=== PATIENT | female | born 1965 | race Caucasian/White ===

== ENCOUNTER 2018-04-14 10:40 | Inpatient (IN) | payer OTHER ==
[2018-04-14] MEDS: Sodium Chloride 0.9% 1,000 ML IV SCH ×2 (12:15→23:50)
--- NOTE | 2018-04-14 12:19 | ED PDOC ---
Arrival/HPI - General Historian: Patient - History of Present Illness Narrative History of Present Illness (Text): 04/14/18 52 yo female w/PMHx of hypothyroidism, May Thurner syndrome, [place] from cruise ship for evaluation of headache, neck pain, ?LOC developed since yesterday. As per pt, " was on water slide yesterday 1:30 PM, remember going down slide and then in water with guards all around me, getting me out of water". Pt reports, developed severe posterior headache, radiating down to posterior neck area. As per , " she might passed out, did not see her hitting the head". Pt reports, was seen by MD on cruise, was told her BP was high. Pt was given Tylenol last night for headache and was seen by MD on cruise again, diagnosed with HTN, received Clonidine 0.1 mg and Xanax 0.5 mg. At present time, pt reports mild occipital headache , mild posterior neck pain. Otherwise, pt denies recent illness, fever, ch ills, severe headache, visual changes, focal deficits, CP, SOB, dyspnea, diaphoresis, palpitation, abd. pain, V/D, back pain, UTI. At present time, appears comfortable, not in any apparent distress. <Rosa Albrecht - Last Filed: 04/14/18 15:47> <Amor Matute - Last Filed: 04/14/18 17:11> - General Chief Complaint: Trauma Time Seen by Provider: 04/14/18 11:59 Past Medical History - Provider Review Nursing Documentation Reviewed: Yes - Travel History Have you recently traveled outside [place] w/in the past 3 mons?: No - Tetanus Immunization Tetanus Immunization: Unknown - Neurological Hx Migraine: Yes - Endocrine/Metabolic Hx Hypothyroidism: Yes - Psychiatric Hx Anxiety: Yes Hx Substance Use: No - Anesthesia Hx Anesthesia: No Hx Anesthesia Reactions: No Hx Malignant Hyperthermia: No <Rosa Albrecht - Last Filed: 04/14/18 15:47> Family/Social History - Physician Review Nursing Documentation Reviewed: Yes Family/Social History: No Known Family HX Smoking Status: Never Smoked Hx Alcohol Use: No Hx Substance Use: No <Rosa Albrecht - Last Filed: 04/14/18 15:47> Allergies/Home Meds <Rosa Albrecht - Last Filed: 04/14/18 15:47> <Jasonjesus manuelAmor salvador - Last Filed: 04/14/18 17:11> Allergies/Adverse Reactions: Allergies No Known Allergies Allergy (Verified 04/14/18 11:13) Home Medications: Home Meds Medication Instructions Recorded Confirmed Levothyroxine [Synthroid] 1 tab PO DAILY 04/14/18 04/14/18 Review of Systems - Review of Systems Constitutional: Normal Eyes: Normal. absent: Vision Changes ENT: Normal Respiratory: Normal. absent: SOB, Cough, Sputum Cardiovascular: Normal Gastrointestinal: Normal. absent: Abdominal Pain Genitourinary Female: Normal Musculoskeletal: Neck Pain Skin: Normal. absent: Rash Neurological: Headache. absent: Dizziness, Focal Weakness Endocrine: Normal Hemo/Lymphatic: Normal Psychiatric: Normal <Rosa Albrecht - Last Filed: 04/14/18 15:47> Physical Exam Vital Signs Reviewed: Yes Vital Signs Temp Pulse Resp BP Pulse Ox 04/14/18 10:41 98.5 F 86 18 158/91 H 100 Temperature: Afebrile Blood Pressure: Hypertensive Pulse: Regular Respiratory Rate: Normal Appearance: Positive for: Well-Appearing, Non-Toxic, Comfortable Pain Distress: None Mental Status: Positive for: Alert and Oriented X 3 - Systems Exam Head: Present: Atraumatic, Normocephalic Pupils: Present: PERRL Extroacular Muscles: Present: EOMI Conjunctiva: Present: Normal Ears: Present: NORMAL TM, Normal Canal Mouth: Present: Moist Mucous Membranes, Normal Lips. No: Drooling Nose (External): Present: Atraumatic Neck: Present: Normal Range of Motion, Paraspinal Tenderness (mild diffuse, no skin changes.), Trachea Midline. No: MIDLINE TENDERNESS, JVD, Bruit Respiratory/Chest: Present: Clear to Auscultation, Good Air Exchange. No: Respiratory Distress, Accessory Muscle Use Cardiovascular: Present: Regular Rate and Rhythm, Normal S1, S2. No: Murmurs Abdomen: No: Tenderness, Distention, Peritoneal Signs, Rebound, Guarding Back: No: CVA Tenderness Upper Extremity: Present: Normal ROM, NORMAL PULSES, Neurovascularly Intact. No: Cyanosis, Edema, Deformity Lower Extremity: Present: NORMAL PULSES, Normal ROM, Neurovascularly Intact. No: Edema, CALF TENDERNESS, Swelling, Deformity Neurological: Present: GCS=15, Speech Normal, Motor Func Grossly Intact, Normal Sensory Function, Normal Cerebellar Funct, Norm Deep Tendon Reflexes, Gait Normal Skin: Present: Warm, Dry, Normal Color. No: Rashes Psychiatric: Present: Alert, Oriented x 3, Normal Insight, Normal Concentration <Rosa Albrecht - Last Filed: 04/14/18 15:47> Vital Signs Temp Pulse Resp BP Pulse Ox 04/14/18 17:04 87 168/111 H 04/14/18 17:01 89 18 168/111 H 100 04/14/18 12:24 84 18 154/92 H 100 04/14/18 10:41 98.5 F 86 18 158/91 H 100 <Amor Matute - Last Filed: 04/14/18 17:11> Medical Decision Making ED Course and Treatment: 04/14/18 Pt remained stable during the Ed evaluation. case discussed, pt evaluated by ED attending and admission recommend Case discussed with and admission arranged to tele with Dx: HTN urg ency, syncope r/o TIA. - RAD Interpretation Narrative RAD Interpretations (Text): 04/14/18 15:13 CT HEAD W/O CONTRAST IMPRESSION: A minimal related neuro degenerative changes are identified without acute intracranial findings as discussed above. Follow up CT or MRI are available if clinically warranted. C-SPINE: IMPRESSION: 1. Straightened cervical curvature without fracture or spondylolisthesis identified. 2. Mild degenerative bilateral C5-6 neural foraminal stenosis. No significant central canal stenosis. No gross disc herniation. MRI can be utilized for greater characterization of the intervertebral disc as clinically warranted. ANGIO NECK: IMPRESSION: No significant common or internal carotid artery stenosis in the neck bilaterally. No evidence of arterial dissection at this time including bilateral vertebral arteries. Radiology Orders: 04/14/18 11:59 ANGIOGRAPHY NECK [CT] Stat CERVICAL SPINE W/O CONTRAST [CT] Stat HEAD W/O CONTRAST [CT] Stat 04/14/18 12:01 CTA HEAD/NECK CODE STROKE [CT] Stat CHEST TWO VIEWS (PA/LAT) [RAD] Stat - EKG Interpretation EKG Interpretation (Text): 04/14/18 12:25 SR@82/min, NAD, no acute T wave or ST-T changes. - Medication Orders Current Medication Orders: Sodium Chloride (Sodium Chloride 0.9%) 1,000 mls @ 100 mls/hr IV .Q10H QUAN <Rosa Albrecht - Last Filed: 04/14/18 15:47> - Lab Interpretations Lab Results: 04/14/18 12:25 04/14/18 12:25 Lab Results 04/14/18 12:25: Hemoglobin A1c 5.5 04/14/18 12:25: Sodium 141, Potassium 4.1, Chloride 108 H, Carbon Dioxide 28, Anion Gap 9 L, BUN 10, Creatinine 0.6 L, Est GFR ( Amer) > 60, Est GFR (Non-Af Amer) > 60, Random Glucose 100, Calcium 9.0, Total Bilirubin 0.6, AST 23, ALT 27, Alkaline Phosphatase 71, Troponin I < 0.01, NT-Pro-B Natriuret Pep 244, Total Protein 6.9, Albumin 4.0, Globulin 2.9, Albumin/Globulin Ratio 1.4, Triglycerides 140, Cholesterol 238 H, LDL Cholesterol Direct 148 H, HDL Cholesterol 71 H 04/14/18 12:25: PT 10.5, INR 0.92, APTT 24.7 L 04/14/18 12:25: WBC 4.8, RBC 4.29, Hgb 12.6, Hct 39.2, MCV 91.4, MCH 29.4, MCHC 32.1, RDW 12.5, Plt Count 261, MPV 8.9, Gran % 66.1, Lymph % (Auto) 27.0, Elbert % (Auto) 4.8, Eos % (Auto) 1.7, Baso % (Auto) 0.4, Gran # 3.19, Lymph # (Auto) 1.3, Elbert # (Auto) 0.2, Eos # (Auto) 0.1, Baso # (Auto) 0.02 - RAD Interpretation Radiology Orders: 04/14/18 11:59 ANGIOGRAPHY NECK [CT] Stat CERVICAL SPINE W/O CONTRAST [CT] Stat HEAD W/O CONTRAST [CT] Stat 04/14/18 12:01 CHEST TWO VIEWS (PA/LAT) [RAD] Stat - Medication Orders Current Medication Orders: Sodium Chloride (Sodium Chloride 0.9%) 1,000 mls @ 100 mls/hr IV .Q10H [facility] Last Admin: 04/14/18 12:15 Dose: 100 mls/hr eMAR Start Stop Document 04/14/18 12:15 EQ (Rec: 04/14/18 12:15 EQ [id number]) Intravenous Solution Start Date 04/14/18 Start Time 12:15 Discontinued Medications Metoprolol Tartrate (Lopressor) 25 mg PO STAT STA Stop: 04/14/18 15:46 Last Admin: 04/14/18 17:04 Dose: 25 mg MAR Pulse and Blood Pressure Document 04/14/18 17:04 EQ (Rec: 04/14/18 17:05 EQ [id number]) Pulse Pulse Rate (60-90) 87 Blood Pressure Blood Pressure (100/60-150/90) 168/111 <Amor Matute - Last Filed: 04/14/18 17:11> - PA / PURCHASER / Resident Statement / has reviewed & agrees with the documentation as recorded. / has examined the patient and agrees with the treatment plan. <Amor Matute - Last Filed: 04/14/18 17:11> Disposition/Present on Arrival - Present on Arrival Any Indicators Present on Arrival: No History of DVT/PE: No History of Uncontrolled Diabetes: No Urinary Catheter: No History of Decub. Ulcer: No History Surgical Site Infection Following: None - Disposition Have Diagnosis and Disposition been Completed?: Yes Disposition Time: 15:31 Patient Plan: Admission <Rosa Albrecht - Last Filed: 04/14/18 15:47> <Amor Matute - Last Filed: 04/14/18 17:11> - Disposition Diagnosis: Syncope, Hypertensive urgency Disposition: HOSPITALIZED Patient Problems: Current Active Problems Problem Status Onset Syncope Acute Hypertensive urgency Acute Condition: STABLE
[2018-04-14 12:51] LABS: BASO # 0.02 K/mm3 (0.0-2.0); BASO % 0.4 % (0.0-3.0); EOS # 0.1 (0.0-0.7); EOS % 1.7 % (1.5-5.0); GRAN # 3.19 (1.4-6.5); GRAN % 66.1 % (50.0-68.0); HEMOGLOBIN 12.6 g/dL (12.0-16.0); LYMPH # 1.3 (1.2-3.4); MEAN CELL VOLUME 91.4 fl (80.0-105.0); MEAN CORPUSCULAR HEMOGLOBIN 29.4 pg (25.0-35.0); MEAN CORPUSCULAR HGB CONC 32.1 g/dl (31.0-37.0); MEAN PLATELET VOLUME 8.9 fl (7.0-11.0); MONO # 0.2 (0.1-0.6); MONO % 4.8 % (1.0-6.0); RBC 4.29 10^6/uL (3.5-6.1); RED CELL DISTRIBUTION WIDTH 12.5 % (11.5-14.5); WHITE BLOOD COUNT 4.8 10^3/ul (4.5-11.0)
[2018-04-14 13:00] LABS: INR 0.92; PARTIAL THROMBOPLASTIN TIME 24.7 Seconds (25.1-36.5); PROTHROMBIN TIME 10.5 SECONDS (9.4-12.5)
[2018-04-14] MEDS ORDERED: Iohexol 350 MG/100 ML VIAL ONE (13:01)
[2018-04-14 13:06] LABS: ALB/GLOB RATIO 1.4 (1.1-1.8); ALT/SGPT 27 U/L (7-56); AST/SGOT 23 U/L (14-36); BLOOD UREA NITROGEN 10 mg/dL (7-21); GFR NON-AFRICAN AMERICAN > 60; HDL CHOLESTEROL 71 mg/dL (29-60)
[2018-04-14 13:17] LABS: LDL CHOLESTEROL 148 mg/dL (0-129)
[2018-04-14 13:20] LABS: B-TYPE NATRIURETIC PEPTIDE 244 pg/mL (0-450); TROPONIN I < 0.01 ng/mL
--- NOTE | 2018-04-14 14:26 | CT ---
Date of service: 04/14/2018 PROCEDURE: CT HEAD WITHOUT CONTRAST. HISTORY: LOC, headache, HTN COMPARISON: None available. TECHNIQUE: Axial computed tomography images were obtained through the head/brain without intravenous contrast. Radiation dose: Total exam DLP = 938.75 mGy-cm. This CT exam was performed using one or more of the following dose reduction techniques: Automated exposure control, adjustment of the mA and/or kV according to patient size, and/or use of iterative reconstruction technique. FINDINGS: HEMORRHAGE: No intracranial hemorrhage. BRAIN: Borderline expansion of the ventricular sulcal sternal spaces may indicate limited atrophy diffusely. No mass-effect is appreciated and corticomedullary differentiation is within normal limits. There also borderline periventricular lucency which may indicate early chronic microangiopathy. A dilated perivascular space is favored over chronic lacune left basal ganglia. VENTRICLES: Unremarkable. No hydrocephalus. CALVARIUM: Unremarkable. PARANASAL SINUSES: Unremarkable as visualized. No significant inflammatory changes. MASTOID AIR CELLS: Unremarkable as visualized. No inflammatory changes. OTHER FINDINGS: None. IMPRESSION: A minimal related neuro degenerative changes are identified without acute intracranial findings as discussed above. Follow up CT or MRI are available if clinically warranted.
--- NOTE | 2018-04-14 14:31 | CT ---
Date of service: 04/14/2018 PROCEDURE: CT Cervical Spine without contrast HISTORY: pain COMPARISON: None available. TECHNIQUE: Axial computed tomography images were obtained of the cervical spine without the use of intravenous contrast. Coronal and sagittal reformatted images were created and reviewed. Radiation dose: Total exam DLP = 440.32 mGy-cm. This CT exam was performed using one or more of the following dose reduction techniques: Automated exposure control, adjustment of the mA and/or kV according to patient size, and/or use of iterative reconstruction technique. FINDINGS: VERTEBRAE: Straightening of the cervical lordosis. No fracture or spondylolisthesis identified. Degenerative changes seen the C1-2 articulation with the craniocervical junction intact. The odontoid process appears intact. Prominent osteophytes are seen related to the anterior greater than posterior C5-6 endplates with minimal spondylosis otherwise evident at C4-5. [id number] multilevel facet joint degenerative arthropathy. DISCS/SPINAL CANAL/NEURAL FORAMINA: No significant bony central canal stenosis identified throughout. Mild bilateral C6 neural foraminal stenoses are appreciated on degenerative basis due to limited uncovertebral and facet joint degenerative change. PREVERTEBRAL AND PARASPINAL SOFT TISSUES: Unremarkable. OTHER FINDINGS: None. IMPRESSION: 1. Straightened cervical curvature without fracture or spondylolisthesis identified. 2. Mild degenerative bilateral C5-6 neural foraminal stenosis. No significant central canal stenosis. No gross disc herniation. MRI can be utilized for greater characterization of the intervertebral disc as clinically warranted.
--- NOTE | 2018-04-14 14:42 | RAD ---
Date of service: 04/14/2018 HISTORY: headache, HTN COMPARISON: No prior. TECHNIQUE: Chest PA and lateral FINDINGS: LUNGS: No active pulmonary disease. PLEURA: No significant pleural effusion identified. No pneumothorax apparent. CARDIOVASCULAR: Normal. OSSEOUS STRUCTURES: Degenerative changes. VISUALIZED UPPER ABDOMEN: Normal. OTHER FINDINGS: None. IMPRESSION: No active disease.
--- NOTE | 2018-04-14 15:00 | CT ---
Date of service: 04/14/2018 PROCEDURE: CT Angiography of the neck with contrast HISTORY: pain, headchae COMPARISON: None. TECHNIQUE: Contiguous axial images of the neck were obtained from the level of the skull-base to the superior mediastinum in the arteriographic phase of enhancement. Coronal and sagittal reformats or also generated. IV contrast dose: Omnipaque 350, 100 cc Radiation Dose - DLP: 405.64 mGy-cm This CT exam was performed using one or more of the following dose reduction techniques: Automated exposure control, adjustment of the mA and/or kV according to patient size, and/or use of iterative reconstruction technique. FINDINGS: RIGHT CAROTID ARTERIES: Common Carotid Artery: Normal. Carotid Bifurcation: Normal. Internal Carotid Artery:Normal. External Carotid Artery (proximal branches): Normal. LEFT CAROTID ARTERIES: Common Carotid Artery: Normal. Carotid Bifurcation: Normal. Internal Carotid Artery:Normal. External Carotid Artery (proximal branches): Normal. VERTEBRAL ARTERIES: Right Vertebral Artery: Normal. Left Vertebral Artery: Normal. OTHER FINDINGS: Incidental stricture proximal left internal jugular vein. IMPRESSION: No significant common or internal carotid artery stenosis in the neck bilaterally. No evidence of arterial dissection at this time including bilateral vertebral arteries.
[2018-04-14] MEDS ORDERED: Nitroglycerin 2% Ointment Foilpak UD TOP STA (17:56)
[2018-04-14] MEDS ORDERED: Influenza Vaccine 60 mcg/0.5 mL SYR (4YR UP) IM ONE (20:53)
[2018-04-14] MEDS ORDERED: Pneumococcal 23-Valent Vaccine IM ONE (20:53)
[2018-04-14 20:54] VITALS: BMI 25.8
[2018-04-15 06:48] VITALS: O2SAT 99
--- NOTE | 2018-04-15 08:54 | CARD ---
APPROVED REPORT Date of service: 04/14/2018 EKG Measurement Heart [id number] <Conclusion> Normal sinus rhythm Normal ECG
[2018-04-15 12:31] VITALS: RESP 20; TEMP 98.2
[2018-04-15 15:18] VITALS: PULSE 88
[2018-04-15 17:16] VITALS: BP 164/104
--- NOTE | 2018-04-15 18:07 | MRI ---
Date of service: 04/14/2018 PROCEDURE: MRI BRAIN WITHOUT CONTRAST HISTORY: HTN, headache COMPARISON: Comparison made with prior CT scan of the brain 04/14/2018.. TECHNIQUE: Multiplanar, multisequence MR images of the brain were obtained without intravenous contrast enhancement. FINDINGS: HEMORRHAGE: No acute parenchymal, subarachnoid or extra-axial hemorrhage. No evidence of hemosiderin deposition is identified on gradient echo weighted sequence. DWI: No evidence of an acute or early subacute infarction seen on diffusion imaging.. BRAIN PARENCHYMA: No mass effect or edema. No atrophy or chronic microvascular ischemic changes. Note made of what is felt to represent a small dilated perivascular space left inferolateral basal nuclei VENTRICLES: No obstructive hydrocephalus. CRANIUM: Unremarkable. ORBITS: Orbits and contents unremarkable. PARANASAL SINUSES/MASTOIDS: Minimal mucosal thickening noted within the inferior margins of both maxillary antra right greater than left.. Minor mucosal thickening seen within a few ethmoid air cells extending superiorly into the frontal sinus. VASCULAR SYSTEM: Visualized major vascular flow voids at skull base patent. OTHER FINDINGS: None. No acute intracranial abnormalities. IMPRESSION:
--- NOTE | 2018-04-16 08:49 | CARD ---
APPROVED REPORT Date of service: 04/15/2018 EXAM: Two-dimensional and M-mode echocardiogram with Doppler and color Doppler. Other Information Quality : AverageRhythm : INDICATION ACCELERATED HTN 2D DIMENSIONS IVSd1.0 (0.7-1.1cm)LVDd4.4 (3.9-5.9cm) PWd1.1 (0.7-1.1cm)LVDs2.9 (2.5-4.0cm) FS (%) 34.4 %LVEF (%)63.0 (>50%) M-Mode DIMENSIONS Left Atrium (MM)3.80 (2.5-4.0cm)Aortic Root3.10 (2.2-3.7cm) Aortic Cusp Exc.2.00 (1.5-2.0cm) Aortic Valve AoV Peak Hfmwlprx727.0cm/s Mitral Valve MV E Oxuhzubr164.0cm/sMV A Esfcghzn02.8cm/sE/A ratio1.1 TDI Lateral E' Peak V12.60cm/sMedial E' Peak V11.60cm/sE/Lateral E'8.0 E/Medial E'8.7 Tricuspid Valve TR Peak Uwfsyayt135ys/sRAP [id number] Peak Gr.16mmHg [id number] LEFT VENTRICLE The left ventricle is normal size. There is normal left ventricular wall thickness. The left ventricular function is normal. The left ventricular ejection fraction is within the normal range. There is normal LV segmental wall motion. RIGHT VENTRICLE The right ventricle is normal size. ATRIA The left atrium size is normal. The right atrium size is normal. AORTIC VALVE The aortic valve is normal in structure. MITRAL VALVE The mitral valve is normal in structure. PULMONIC VALVE The pulmonary valve is normal in structure. GREAT VESSELS The aortic root is normal in size. PERICARDIAL EFFUSION There is no pericardial effusion. <Conclusion> The left ventricle is normal size. There is normal left ventricular wall thickness. The left ventricular function is normal.
--- NOTE | 2018-04-16 16:10 | HP ---
DATE OF EXAM: 04/15/2018 This patient signed AMA on 04/15/2018. SUMMARY: This 52-year-old female who returned from a cruise at the local [place] cruise ship port presented to [facility] yesterday evening complaining of headache with questionable loss of consciousness while on the cruise ship, where she states she was going down a pool slide, hit her head and then developed a headache for which she sought medical attention on the cruise ship. A physician there noted hypertension, gave the patient a dose of clonidine and Xanax. Her blood pressure was rechecked the next morning and the patient was still noted to have hypertension. Given the questionable loss of consciousness during the event, she was advised to come to the [facility] ER for further evaluation of the above. While in our emergency room, she was noted to be hypertensive, underwent a CT of the head that was unremarkable and was admitted for uncontrolled hypertension and further evaluation of her above symptoms. PAST MEDICAL HISTORY: Significant for menopause, hypothyroidism and history as listed above. ALLERGIES: THE PATIENT DENIES ANY ALLERGIES TO MEDICATION. SOCIAL HISTORY: States she is a social drinker, nonsmoker, non IV drug misuser. FAMILY HISTORY: Significant for both parents with history of essential hypertension. MEDICATIONS: The patient states her only medication is Synthroid 150 mcg p.o. daily. REVIEW OF SYSTEMS: CONSTITUTIONAL REVIEW: She denied fever or chills. HEAD REVIEW: Denied any knowledge of seizure or stroke. EYE REVIEW: No change in visual acuity. EAR REVIEW: No hearing loss. THROAT REVIEW: No swallowing difficulty. NECK REVIEW: No stiffness. CARDIAC REVIEW: Denied any knowledge of cardiac arrhythmia, chronic hypertension or myocardial infarction. PULMONARY: No cough. No hemoptysis. GI: No hematemesis. No melena. : No dysuria. SKIN: No rash. VASCULAR: No claudication. PSYCHOLOGICAL: The patient denied any knowledge of depression. ENDOCRINOLOGICAL: Has hypothyroidism, but denied any knowledge of diabetes mellitus. PHYSICAL EXAMINATION: VITAL SIGNS: At the time of my interview, her temperature was 97.5, respirations 18, pulse 87, blood pressure 166/96, earlier 175/109, pulse ox was 99% on room air. She was in a normal sinus rhythm on the quality assurance monitor body. HEENT: Head: Normocephalic, atraumatic. Eyes: No icterus. Ears: Clear. Throat: Noninjected. NECK: Supple. HEART: Irregular S1, S2. LUNGS: Clear. ABDOMEN: Soft. EXTREMITIES: No edema. SKIN: Without rash. NEUROLOGICAL: Grossly intact. PSYCHOLOGICAL: Alert and oriented x3. VASCULAR: Legs warm to touch. She had no skin rash noted. LABORATORY DATA: Showed a PT/INR of 0.92, PTT 24.7. Sodium 141, K 4.1, chloride 108, bicarb 28, BUN 10, creatinine 0.6, random blood sugar 100. Hemoglobin A1c 5.5, calcium 9. Bilirubin 0.6, AST 23, ALT 27, alk phos 71. Troponin less than 0.01. BNP normal at 244. Cholesterol 238, triglycerides 140, LDL 148, HDL 71. White count 4800, hemoglobin 12.6, hematocrit 39.2, MCV 91.4, platelets 261,000. Head CT was reviewed. It showed no acute intracranial findings. No hemorrhage. No stroke. Chest x-ray was reviewed. It showed no active pulmonary disease. There were no pleural effusions, no pneumothorax, no infiltrate, no evidence of congestive heart failure. EKG was reviewed. It showed a normal sinus rhythm. IMPRESSION AND PLAN: A 52-year-old female who was admitted with complaints of headaches, questionable loss of consciousness after sustaining a bang to her head while going down a water slide while on a cruise ship. Earlier this week she went to the cruise ship doctor and was noted to have anxiety and hypertension which still persists during this hospital stay. The patient was given antihypertensive treatment with oral clonidine, oral metoprolol tartrate, and at the time of my interview with the patient, her brain MRI and 2-D echocardiography reports were pending. The patient was given an additional dose of clonidine 0.1 mg p.o. She insisted on leaving against medical advice. At the time of her leaving AMA, her last blood pressure was 164/104. I told her nurse, Estephania Bermeo, registered nurse to have the house physician give the patient a prescription for metoprolol tartrate 25 mg p.o. b.i.d., 5-day supply and I had advised this patient should she sign AMA to make sure she scheduled a follow-up appointment with her primary care physician upon her return to her home in [facility] within the next 72 hours or if she should experience any further change in signs and symptoms to present directly to the closest emergency room in [place], [place], where she will be residing later this evening. Hopefully, she will be compliant with this recommendation, but once again she did leave against medical advice. Roma Paez MD MTDD
--- NOTE | 2018-04-17 05:31 | DS ---
The patient left against medical advice on 04/15/2018. SUMMARY: This 52-year-old female who was admitted to [facility] with headache and uncontrolled hypertension signed against medical advice on 04/15/2018. She was seen by Dr. Stahl at her bedside, who discussed the AMA with the patient, and gave her a prescription for Lopressor 25 mg b.i.d. #10. At the time of her leaving against medical advice, her echocardiography and MRIs were pending. I did review these official reports on the morning of 04/16/2018. Her brain MRI showed no acute intracranial hemorrhage or infarct, and her 2-D echocardiography as reviewed by Dr. Justin Kahn showed a normal left ventricular wall motion thickness and no significant wall abnormalities, no pericardial effusion and no significant pericardial effusion or valvular abnormalities. The patient was advised by myself, nursing, and Dr. Stahl - house physician, that should she have any change in signs and symptoms after leaving the [facility], to present to the closest emergency room and to follow up with her primary care physician upon her return to [facility]. Hopefully, she will be compliant with these requests. Roma Paez MD MTDD
== END 2018-04-15 18:31 | disposition left against medical advice (07) | DRG 305 ==
LOC: ED 10:40 → ERH 15:43 → 2RSO 22:09
PROVIDERS: ADMIT Internal Medicine; ATTEND Internal Medicine
DX: I16.0 Hypertensive urgency (principal); I10 Essential (primary) hypertension; E03.9 Hypothyroidism, unspecified; F41.9 Anxiety disorder, unspecified; M48.02 Spinal stenosis, cervical region; Z82.49 Family history of ischemic heart disease and other diseases of the circulatory system; R55 Syncope and collapse; R51 Headache